=== PATIENT | female | born 1985 | race African-American/Black ===

== ENCOUNTER 2016-10-14 11:30 | Observation (INO) ==
[2016-10-14] MEDS ORDERED: SODIUM CHLORIDE 0.9% 250 ML IV PRN (12:29)
--- NOTE | 2016-10-14 13:02 | XRay Report ---
XR chest 2V Indication: Preop respiratory evaluation. Chest 2 views: The heart size and mediastinal contour are normal. The lungs and pleural spaces are clear. Bones are unremarkable. Impression: Negative chest. PROCEDURE INTERPRETED AT [facility] DEPARTMENT OF RADIOLOGY Final Report Signed by: Mati Asencio M.D.
[2016-10-14 13:05] LABS: Apearance,Urine Clear (Clear); Bilirubin,Urine Negative (Negative); Blood, Urine NEGATIVE (Negative); Glucose,Urine (UA) Negative (Negative); Ketones,Urine Negative (Negative); Mucus,Urine Occasional /LPF (Occasional); Nitrite,Urine Negative (Negative); Protein,Urine Negative; RBC,Urine <1 /HPF (0-4); Squamous Epithelial Cell,Urine Occasional /HPF (0-10); Urine Color Yellow (Yellow); Urine Urobilinogen 0.2 EU/DL (0.2-1.0); WBC,Urine 2 /HPF (0-6)
[2016-10-14 13:12] LABS: Basophils % 0.7 % (0.0-0.8); Eosinophils % 0.7 % (0.00-10.9); Hematocrit 24.5 VOL% (35.7-47.0); Immature Granulocytes % 0.2 %; Immature Granulocytes Absolute 0.01 #; Lymphocytes # 1.7 10*3/uL (1.4-4.0); Lymphocytes % 28.8 % (21.3-54.2); Mean Corpuscular HGB Conc 26.1 GM/DL (32-36); Mean Corpuscular Hemoglobin 16 PG (27-34); Mean Corpuscular Volume 60.3 FL (87-102); Monocytes # 0.5 10*3/uL (0.11-0.8); Monocytes % 8.2 % (1.7-12.7); Neutrophils # 3.7 10*3/uL (1.4-7.4); Neutrophils % 61.4 % (38.7-73.9); Platelet Count 675 T/CUMM (130-400); Red Blood Count 4.06 MC/CUMM (3.8-5.5); Red Cell Distribution Width 29.5 % (9.3-17.3)
[2016-10-14 13:13] LABS: Hemoglobin 6.4 GM/DL (12.0-16.0)
[2016-10-14 13:30] LABS: Bilirubin,Total 0.4 MG/DL (0.2-1.0); Calcium 9.1 MG/DL (8.5-10.1); Osmolality,Calculated 283.8 MOS/KG (273-304); Potassium 4.3 MMOL/L (3.5-5.1); Total Protein 7.6 G/DL (6.4-8.3)
--- NOTE | 2016-10-14 13:33 | EKG Report ---
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
[2016-10-14] MEDS ORDERED: SODIUM CHLORIDE 0.9% 1,000 ML IV SCH (14:00)
[2016-10-14 14:05] LABS: Hypochromasia 3+; Lymphocytes 34 % (20-55); Macrocytosis 1+; Microcytosis 2+; Platelet Estimate Increased; Polychromasia Slight; Segmented Neutrophils 63 % (50-85); Target Cells Slight; Total Cells Counted 100
[2016-10-14 21:41] LABS: Hematocrit 27.8 VOL% (35.7-47.0); Hemoglobin 7.8 GM/DL (12.0-16.0)
[2016-10-15] MEDS ORDERED: DEXTROSE 5% LACTATED RINGERS 1,000 ML IV SCH (03:00)
[2016-10-15] MEDS: LACTATED RINGERS 1,000 ML IV SCH ×2 (07:15→08:31)
[2016-10-15] MEDS ORDERED: LACTATED RINGERS 1,000 ML IV SCH (08:00)
--- NOTE | 2016-10-15 09:14 | Discharge Summary ---
Hospital Course - Hospital Course Hospital Course: Admitted last evening for transfusion of 2 units pRBCs with significant anemia in preparation for Hysteroscopy, D&C with surgery as indicated with 4 cm fibroid of cervix. Pt underwent Hysteroscopy with partial removal of fibroid with MyoSure without complication. She was transferred to in stable condition. Discharge Plan - Discharge Data Disposition: Disch To Home/Self Care Condition at Discharge: Stable Discharge Diet: advance to your usual diet Activity: other (pelvic rest x 2 wks) Hygiene: may shower Weight Bearing at Discharge: full weight bearing Driving: not for (1 day) Contact your physician if you experience:: fever over 101, Difficulty voiding, Redness or swelling, Nausea/Vomiting, Shortness of breath, Bleeding, pain uncontrolled by pain medications - Discharge Medications No Action Multivitamin [One Daily] 1 each PO DAILY - Follow Up or Referral Follow Up: Inessa Guido DO [Physician] - 1 Week - Forms/Instructions Exam - Constitutional Vitals: Period Temp Pulse Resp BP Sys/Javed Pulse Ox Last 24 Hr 97.6 F-98.9 F 83-97 18-20 128-146/66-85 98-100 General appearance: no acute distress, over weight - Head Head exam: Present: normal inspection, normocephalic Discharge Results Procedures and tests throughout hospitalization: Pending Orders 10/14/16 12:39 Red Blood Cells Leuko Red Routine Type and Screen Routine Labs on day of discharge: Labs from last 24 hours 10/14/16 10/14/16 10/14/16 Unknown 20:58 12:56 WBC RBC Hgb 7.8 L D Hct 27.8 L MCV MCH MCHC RDW Plt Count Neut % (Auto) Lymph % (Auto) [place] % (Auto) Eos % (Auto) Baso % (Auto) Neut # (Auto) Lymph # (Auto) [place] # (Auto) Eos # (Auto) Baso # (Auto) Total Counted Immature Gran % Nucleated RBC % Immature Gran # Segmented Neutrophils Lymphocytes Monocytes Basophils Nucleated RBCs # Platelet Estimate Polychromasia Hypochromasia Microcytosis Macrocytosis Target Cells Sodium Potassium Chloride Carbon Dioxide Anion Gap BUN Creatinine GFR Calculation BUN/Creatinine Ratio Glucose Calculated Osmolality Calcium Total Bilirubin AST ALT Alkaline Phosphatase Total Protein Albumin Globulin Albumin/Globulin Ratio Serum , Qual Urine Color Yellow Urine Appearance Clear Urine pH 6.0 Ur Specific [place] 1.020 Urine Protein Negative Urine Glucose (UA) Negative Urine Ketones Negative Urine Blood Negative Urine Nitrate Negative Urine Bilirubin Negative Urine Urobilinogen 0.2 Urine Leukocytes Negative Urine RBC <1 Urine WBC 2 Ur Squamous Epith Cells Occasional Urine Mucus Occasional Ur Culture Indicated? Not indicated Blood Type AB POSITIVE Antibody Screen Crossmatch 10/14/16 10/14/16 10/14/16 12:39 12:39 12:39 WBC RBC Hgb Hct MCV MCH MCHC RDW Plt Count Neut % (Auto) Lymph % (Auto) [place] % (Auto) Eos % (Auto) Baso % (Auto) Neut # (Auto) Lymph # (Auto) [place] # (Auto) Eos # (Auto) Baso # (Auto) Total Counted Immature Gran % Nucleated RBC % Immature Gran # Segmented Neutrophils Lymphocytes Monocytes Basophils Nucleated RBCs # Platelet Estimate Polychromasia Hypochromasia Microcytosis Macrocytosis Target Cells Sodium 144 Potassium 4.3 Chloride 107 Carbon Dioxide 24 Anion Gap 17.3 H BUN 9 Creatinine 0.60 GFR Calculation 172 BUN/Creatinine Ratio 15.00 Glucose 86 Calculated Osmolality 283.8 Calcium 9.1 Total Bilirubin 0.40 AST 11 ALT 15 Alkaline Phosphatase 40 L Total Protein 7.6 Albumin 4.0 Globulin 3.6 H Albumin/Globulin Ratio 1.1 Serum , Qual Negative Urine Color Urine Appearance Urine pH Ur Specific [place] Urine Protein Urine Glucose (UA) Urine Ketones Urine Blood Urine Nitrate Urine Bilirubin Urine Urobilinogen Urine Leukocytes Urine RBC Urine WBC Ur Squamous Epith Cells Urine Mucus Ur Culture Indicated? Blood Type AB POSITIVE Antibody Screen Negative Crossmatch See Detail 10/14/16 12:39 WBC 6.0 RBC 4.06 Hgb 6.4 L* Hct 24.5 L MCV 60.3 L MCH 16 L MCHC 26.1 L RDW 29.5 H Plt Count 675 H Neut % (Auto) 61.4 Lymph % (Auto) 28.8 [place] % (Auto) 8.2 Eos % (Auto) 0.7 Baso % (Auto) 0.7 Neut # (Auto) 3.7 Lymph # (Auto) 1.7 [place] # (Auto) 0.5 Eos # (Auto) 0.0 Baso # (Auto) 0.0 Total Counted 100 Immature Gran % 0.2 Nucleated RBC % 0.0 Immature Gran # 0.01 Segmented Neutrophils 63 Lymphocytes 34 Monocytes 2 Basophils 1.0 H Nucleated RBCs # 0.00 Platelet Estimate Increased Polychromasia Slight Hypochromasia 3+ Microcytosis 2+ Macrocytosis 1+ Target Cells Slight Sodium Potassium Chloride Carbon Dioxide Anion Gap BUN Creatinine GFR Calculation BUN/Creatinine Ratio Glucose Calculated Osmolality Calcium Total Bilirubin AST ALT Alkaline Phosphatase Total Protein Albumin Globulin Albumin/Globulin Ratio Serum , Qual Urine Color Urine Appearance Urine pH Ur Specific [place] Urine Protein Urine Glucose (UA) Urine Ketones Urine Blood Urine Nitrate Urine Bilirubin Urine Urobilinogen Urine Leukocytes Urine RBC Urine WBC Ur Squamous Epith Cells Urine Mucus Ur Culture Indicated? Blood Type Antibody Screen Crossmatch DS: Provider Date of admission: 10/14/16 11:32 Primary care physician: . No PCP Attending physician on admission: Inessa Guido DO Discharging clinician: Inessa Guido DO Expected date of discharge: 10/15/16
--- NOTE | 2016-10-15 09:22 | Anesthesia ---
Anesthesia Post OP - Post Ansesthetic Evaluation Patient seen in post op: Yes Resp: within normal limits CV: within normal limits Mental: within normal limits Temp: within normal limits [id number]: within normal limits Nausea and Vomiting: within normal limits Pain: within normal limits
[2016-10-15] MEDS ORDERED: SEVOFLURANE 1 UNIT/15 MINUTE INH ONE (09:27)
[2016-10-15] MEDS ORDERED: MIDAZOLAM 2 MG/2 ML VIAL ONE (09:27)
[2016-10-15] MEDS ORDERED: ACETAMINOPHEN 1,000 MG/100 ML VIAL IV ONE (09:27)
[2016-10-15] MEDS ORDERED: fentaNYL 100 MCG/2 ML VIAL ONE (09:27)
[2016-10-15] MEDS ORDERED: LACTATED RINGERS 1,000 ML IV ONE (09:27)
[2016-10-15] MEDS ORDERED: ONDANSETRON 4 MG/2 ML VIAL IV PRN (09:32)
[2016-10-15] MEDS ORDERED: HYDROmorphone 2 MG/1 ML VIAL IV PRN (09:32)
[2016-10-15 13:04] VITALS: BP 126/66
--- NOTE | 2016-10-16 10:39 | Pathology Report from [facility] ---
ACCESSION # : [id number] PATIENT NAME : Micaela Galicia ORDERING DR : KATHRYN MCKINNON CLINICAL HX: Menometrorrhagia POST-OP DX: Same SPECIMEN INFO: Endometrial/endocervical uterine fibroid tissue GROSS DESCRIPTION: Received in formalin labeled "MICAELA GALICIA" consists of an aggregate of white fibrous tissue measuring 2.0 x 4.0 x 1.3 cm. [employer] sections are submitted in cassettes A-C. DIAGNOSIS FOR MICAELA GALICIA: ENDOCERVICAL/ ENDOMETRIAL CURETTAGE: Predominately fragments of smooth muscle c/w leiomyoma. Secretory endometrium. SERVICE DATE: 10/15/2016 REPORT DATE: 10/16/2016 PATHOLOGIST: Yrn Glass M.D. [facility]
== END 2016-10-15 14:00 | disposition home or self-care (01) ==
LOC: N.OB
PROVIDERS: ADMIT Obstetrics & Gynecology; ATTEND Obstetrics & Gynecology